=== PATIENT | female | born 1950 | race Caucasian/White ===

== ENCOUNTER 2019-02-10 09:52 | Observation (INO) ==
[2019-02-10] MEDS ORDERED: DILTIAZEM 25 MG/5 ML VIAL IV ONE (10:22)
[2019-02-10 10:28] LABS: Basophils # 0.1 10*3/uL (0.0-0.2); Basophils % 0.7 % (0.0-0.8); Eosinophils # 0.1 10*3/uL (0.0-0.87); Eosinophils % 0.8 % (0.00-10.9); Hematocrit 41.8 VOL% (35.7-47.0); Hemoglobin 13.5 GM/DL (12.0-16.0); Immature Granulocytes % 0.4 %; Immature Granulocytes Absolute 0.03 #; Lymphocytes # 1.3 10*3/uL (1.4-4.0); Lymphocytes % 15.8 % (21.3-54.2); Mean Corpuscular HGB Conc 32.3 GM/DL (32-36); Mean Corpuscular Hemoglobin 31 PG (27-34); Mean Platelet Volume 9.8 FL (9.6-12.0); Monocytes # 0.9 10*3/uL (0.11-0.8); Monocytes % 10.4 % (1.7-12.7); Neutrophils # 6.1 10*3/uL (1.4-7.4); Neutrophils % 71.9 % (38.7-73.9); Platelet Count 241 T/CUMM (130-400); Red Cell Distribution Width 12.8 % (9.3-17.3); White Blood Count 8.5 T/CUMM (4-12)
[2019-02-10] MEDS ORDERED: DILTIAZEM 50 MG/10 ML VIAL IV STA (10:29)
[2019-02-10 11:03] LABS: Albumin 3.8 G/DL (3.4-5.0); Bilirubin,Total 0.6 MG/DL (0.2-1.0); Calcium 9.3 MG/DL (8.5-10.1); Osmolality,Calculated 277.5 MOS/KG (273-304); Thyroid Stimulating Hormone 1.48 uIU/ml (0.358-3.74); Total Protein 6.9 G/DL (6.4-8.3)
[2019-02-10] MEDS ORDERED: ONDANSETRON 4 MG/2 ML VIAL IV PRN (13:26)
[2019-02-10] MEDS ORDERED: ZALEPLON 5 MG CAPSULE PO PRN (13:26)
[2019-02-10] MEDS ORDERED: MAGNESIUM SULF RIDER 4 GM in PREMIX 1 EACH IV PRN (13:26)
[2019-02-10] MEDS ORDERED: BISACODYL 5 MG TABLET PO PRN (13:26)
[2019-02-10] MEDS ORDERED: MORPHINE 4 MG/1 ML VIAL IV PRN (13:26)
[2019-02-10] MEDS ORDERED: diphenhydrAMINE CAP 25 MG CAPSULE PO PRN (13:26)
[2019-02-10] MEDS ORDERED: DOCUSATE SODIUM 100 MG CAPSULE PO PRN (13:26)
[2019-02-10] MEDS ORDERED: POTASSIUM CHLORIDE 20 MEQ TABLET PO PRN (13:26)
[2019-02-10] MEDS ORDERED: ACETAMINOPHEN 325 MG TABLET PO PRN (13:26)
[2019-02-10] MEDS ORDERED: MAGNESIUM SULF RIDER 2 GM in PREMIX 1 EACH IV PRN (13:26)
[2019-02-10] MEDS ORDERED: guaiFENesin/DM ER 600-30 MG TABLET PO PRN (13:26)
[2019-02-10 14:21] LABS: Troponin I < 0.015 NG/ML (0.00-0.045)
[2019-02-10] MEDS: PANTOPRAZOLE 40 MG TABLET PO SCH (14:26)
[2019-02-10] MEDS: SOTALOL 80 MG TABLET PO SCH ×2 (14:52→20:02)
[2019-02-10] MEDS: APIXABAN 5 MG TABLET PO SCH ×2 (14:52→20:18)
[2019-02-10] MEDS ORDERED: dilTIAZem Drip 125 MG/125 ML PREMIX IV SCH (15:00)
[2019-02-10 15:43] LABS: Apearance,Urine CLEAR (Clear); Bacteria,Urine Occasional /HPF (Few); Bilirubin,Urine Negative (Negative); Blood, Urine Negative (Negative); Glucose,Urine (UA) Negative (Negative); Ketones,Urine 5 mg/dL (Negative); Nitrite,Urine Negative (Negative); Protein,Urine Negative; RBC,Urine 1 /HPF (0-4); Squamous Epithelial Cell,Urine Occasional /HPF (0-10); Urine Color Yellow (Yellow); Urine Specific Gravity 1.011 (1.001-1.035); Urine Urobilinogen < 2.0 EU/DL (0.2-1.0); WBC,Urine <1 /HPF (0-6)
[2019-02-10] MEDS ORDERED: SODIUM CHLORIDE 0.9% 500 ML IV ONE (16:47)
[2019-02-10 17:37] LABS: Troponin I < 0.015 NG/ML (0.00-0.045)
[2019-02-10] MEDS: SODIUM CHLORIDE 0.45% 1,000 ML IV SCH (17:43)
[2019-02-10] MEDS ORDERED: APIXABAN 5 MG TABLET PO SCH (21:00)
[2019-02-10] MEDS ORDERED: SOTALOL 80 MG TABLET PO SCH (21:00)
[2019-02-11 05:30] LABS: Calcium 8.1 MG/DL (8.5-10.1); Potassium 4.2 MMOL/L (3.5-5.1)
[2019-02-11 05:43] LABS: Basophils % 0.8 % (0.0-0.8); Eosinophils # 0.1 10*3/uL (0.0-0.87); Eosinophils % 1.9 % (0.00-10.9); Hematocrit 33.4 VOL% (35.7-47.0); Hemoglobin 10.6 GM/DL (12.0-16.0); Immature Granulocytes % 0.2 %; Immature Granulocytes Absolute 0.01 #; Lymphocytes # 1.8 10*3/uL (1.4-4.0); Lymphocytes % 34.3 % (21.3-54.2); Mean Corpuscular HGB Conc 31.7 GM/DL (32-36); Mean Corpuscular Hemoglobin 30 PG (27-34); Mean Corpuscular Volume 95.4 FL (87-102); Mean Platelet Volume 10.4 FL (9.6-12.0); Monocytes # 0.7 10*3/uL (0.11-0.8); Monocytes % 12.3 % (1.7-12.7); Neutrophils # 2.7 10*3/uL (1.4-7.4); Neutrophils % 50.5 % (38.7-73.9); Platelet Count 185 T/CUMM (130-400); Red Cell Distribution Width 12.8 % (9.3-17.3); White Blood Count 5.3 T/CUMM (4-12)
[2019-02-11] MEDS: SODIUM CHLORIDE 0.45% 1,000 ML IV SCH (06:41)
[2019-02-11 07:55] VITALS: BP 116/59
[2019-02-11] MEDS: SOTALOL 80 MG TABLET PO SCH (08:40)
[2019-02-11] MEDS: PANTOPRAZOLE 40 MG TABLET PO SCH (08:41)
[2019-02-11] MEDS: APIXABAN 5 MG TABLET PO SCH (08:41)
[2019-02-11] MEDS ORDERED: ESTRADIOL 1 MG TABLET PO SCH (09:00)
[2019-02-11] MEDS ORDERED: CITALOPRAM 20 MG TABLET PO SCH (09:00)
== END 2019-02-11 11:21 | disposition home or self-care (01) ==
LOC: N.TELES 09:52 → N.ED 09:52 → N.TELES 13:12
PROVIDERS: ADMIT Internal Medicine Cardiovascular Disease; ATTEND Internal Medicine Cardiovascular Disease